=== PATIENT | female | born 1950 | race Caucasian/White ===

== ENCOUNTER 2024-02-09 05:58 | Day surgery (SDC) | payer OTHER, SELFPAY ==
[2024-02-03 08:17] VITALS: BMI 25.0
[2024-02-09] VITALS (12 sets, daily range): BP systolic 83–125; BP diastolic 49–76; PULSE 62–74; RESP 15–20; TEMP 36.1–36.4; O2SAT 96–99; BMI 13.2
--- NOTE | 2024-02-09 | DI.RAD.S_ITS ---
PROCEDURE: XR PELVIS 1-2V INDICATIONS: RIGHT TOTAL HIP TECHNIQUE: Intra-operative view of the pelvis and hip acquired. COMPARISON: None. FINDINGS: Bones: Intraoperative devices prior to placement of arthroplasty prostheses are in expected positions. No fractures or suspicious bony lesions. Soft tissues: Overlying surgical retractors are present, along with other intraoperative changes. IMPRESSION: Expected intraoperative changes for right hip arthroplasty. Dictated by: Apple Mcdonnell MD, PhD on 02/09/2024 at 9:50 Approved by: Apple Mcdonnell MD, PhD on 02/09/2024 at 9:50
--- NOTE | 2024-02-09 06:00 | DI.RAD.S_ITS ---
PROCEDURE: XR HIP W PEL IF DONE RT 2V INDICATIONS: CRISPIN TECHNIQUE: AP pelvis and lateral view of the hip acquired. COMPARISON: [facility], CR, XR PELVIS 1-2V, 02/09/2024, 8:59. FINDINGS: Bones: Patient is status post right hip arthroplasty, with hardware components in expected positions. The hip joint appears congruent. The visualized bony structures appear intact. Soft tissues: Overlying postoperative changes are noted. No suspicious soft tissue densities. IMPRESSION: Expected post-operative appearance of a hip arthroplasty. Dictated by: Vega Waite M.D. on 02/09/2024 at 16:54 Approved by: Vega Waite M.D. on 02/09/2024 at 16:54
[2024-02-09] MEDS: VANCOMYCIN 1,000 MG/200 ML PIGGYBACK 200 MG IV (06:50)
[2024-02-09] MEDS: CELECOXIB 200 MG CAPSULE PO (06:53)
[2024-02-09] MEDS: ACETAMINOPHEN 325 MG TABLET 975 MG PO (06:53)
[2024-02-09] MEDS: LACTATED RINGERS 1,000 ML 42 ML IV (06:53)
--- NOTE | 2024-02-09 07:38 | PM.PREOP ---
Pre-operative Note Interval Note History & Physical reviewed/Exam performed by Physician: Yes Changes to H&P: No
--- NOTE | 2024-02-09 07:39 | PM.OP.1 ---
Operative Date/Time/Diagnoses Date of procedure: 02/09/24 Time of procedure: 07:55 Pre-op diagnosis: Severe right hip OA Post-op diagnosis: same Procedure & Clinicians Procedure: Right total hip arthroplasty anterior approach Same procedure as scheduled: Yes Indications: The patient has had progressively worsening right hip pain with radiographic changes consistent with arthritis. Non-operative management has failed and the patient has requested total hip replacement. The risks, benefits and alternatives to surgery were discussed with the patient prior to proceeding. Risks discussed included, but were not limited to, failure to relieve pain, leg length discrepancy, dislocation, stiffness, infection, nerve damage, deep venous thrombosis, pulmonary embolism, stroke, coma, heart attack, permanent paralysis and , as well as the potential need for eventual revision of the prosthetic. Surgeon: Nahomi Solis Belling Machine Operator: Junior Paniagua Anesthesia Type: General and Sedation Operative Notes Findings: Severe right hip OA, adequate stability, adequate bone Closure Type: primary Specimen(s): none sent Prosthetic devices, grafts, tissues, transplants, or devices: Slois and R3, neutral poly liner,one 6.5 mm screw, polar stem std 2 with collar, 36 by -3 cobalt chrome head Estimated Blood Loss (mL): 250 Blood products transfused: none Procedure in detail: The patient was brought to the operating room. Patient was carefully positioned in the supine position. Time-out was performed and antibiotics were given. Anesthesia was induced. She was positioned in the on the table in order to allow hyperextension of the hip. The right lower extremity was prepped and draped in a standard sterile fashion. An anterior right hip incision was made 1 fingerbreadth lateral to the anterior superior iliac spine and extended distally towards the greater trochanter. Dissection was carried out through skin and subcutaneous tissues. Superficial hemostasis was achieved. The fascia over the tensor fascia radha was defined and incised with a knife. Two Allis clamps were used to grasp the fascia. Tensor fascia radha was retracted laterally. A gelpi retractor was placed. Dissection was carried out down along the neck. The circumflex vessels were carefully identified and cauterized with the Aqua Mantis. A PA was used during the procedure was essential for intraoperative retraction and safe implantation of the components. There was good visualization of the femoral neck. A Cobra was placed superior to the neck and the gluteus fibers were carefully stripped from that superior aspect of the capsule. A 2nd retractor was placed along the inferior aspect of the neck. The rectus insertion along the capsule was partially released. A 3rd retractor that was then gently placed over the rim of the acetabulum under the rectus. Capsule was carefully incised and released from the intertrochanteric line circumferentially superior to the mid sagittal line and inferiorly to the mid sagittal line until the lesser trochanter was palpable. A tag stitch was placed both in the superior and inferior limb of the capsular insertion. Along the acetabulum capsule was also released up to the mid sagittal 12:00 position. A portion of the labrum was resected. A saw was used to perform an osteotomy at the level of the intertrochanteric line and the junction of the superior femoral neck leaving approximately 1 finger breath of residual inferior neck above the lesser trochanter. A 2nd cut was made along the femoral neck at the base of the head and a napkin ring of neck was removed. Corkscrew was placed in the femoral head and the head was removed without difficulty. Retractors were then repositioned around the acetabulum. Residual labrum was resected and additional osteophytes were removed. A reamer that was 4 mm below the templated size was placed by hand in the acetabulum and it was reamed to centralize the acetabulum. It was then reamed up to 2 under the templated size and fluoroscopy was brought in to confirm the position of the reaming and depth of reaming. I reamed 1 under the anticipated size. A trial cup was placed and noted that it was appropriately sized and fluoroscopy confirmed position and depth. The component was open and inserted without difficulty fluoroscopic imaging was used to confirm that the cup had been adequately seated and was well positioned. Neutral poly liner was placed. The cup was tested and noted to be stable. Attention was then directed to the femur. The femur was gently hyperextended additional capsular release was performed as needed in order to allow adequate visualization of the proximal femur with elevation of the femur. Patient was placed in a hyperextended slightly adducted position with maximum external rotation. Box osteotome was used to check for any residual neck as well as sclerotic bone along the trochanter. [place] pepper was placed in the femur. Additional broaching was performed. Canal finder was used to determine the alignment of the canal and position. Size 1 broach was placed. The canal was then appropriately broached up to the templated size as long as there was adequate stability of the broach and serial advancement of the broach without excessive impingement. Specific attention was directed at avoiding varus attempting to direct the distal aspect of the broach more anteriorly and avoiding excessive anteversion. Trial reduction showed acceptable range of motion, good stability, no posterior impingement, adventism of leg length and appropriate lateral shuck. I also hyperflexed the hip and checked that there was no impingement anteriorly and there was good stability with flexion, adduction and internal rotation. Marcaine and Exparel 266 mg were injected. The stem was placed without difficulty. Repeat trial reduction and x-ray showed acceptable overall position, length, and no evidence of the femoral fracture. Final head was placed. Wound was meticulously irrigated with normal saline. The hip was reduced and additional Exparel and Marcaine were injected. The capsule was closed with interrupted nonabsorbable sutures. The fascia of the tensor was closed with interrupted and running Vicryl. No drain was placed. Any tensor fascia radha muscle that appeared to be contused or injured which was a minimal amount was carefully resected. Capsule around the tensor was injected with Exparel and Marcaine. The skin was closed with barbed stitches for the subcutaneous tissue and skin. We also used surgical glue. The wound was dressed sterilely. Brief Betadine soak was also used and was meticulously irrigated with normal saline. Patient was transferred to recovery room in satisfactory condition. Complications: none Post-operative Condition: stable Disposition: Acute Care Plan for aftercare: The patient will be maintained on a standard total hip replacement protocol with weight bearing as tolerated and anterior hip precautions. The patient will receive Xarelto and sequential compression devices for DVT prophylaxis. The patient will be discharged home when safe for the home environment.
[2024-02-09] MEDS: TRANEXAMIC ACID 1,000 MG VIAL 1000 MG INJ ×2 (08:10→09:35)
[2024-02-09] MEDS: CEFAZOLIN 2 GM/100 ML PREMIX 100 ML IV ×2 (08:15→16:21)
--- NOTE | 2024-02-09 08:28 | SUR.OPER ---
Supine on padded [place] table with bilateral legs secured in padded positioning boots and suspended in positioning spars, operative leg in traction per surgeon. Head on one pillow. Arm on non-operative side secured on padded armboard <90 degrees abduction. Arm on operative side padded and resting across chest then secured with tape over sheet. Padded perineal post in place per surgeon.
[2024-02-09] MEDS: BUPIVACAINE LIPOSOME 266 MG/20 ML VIAL INJ (08:34)
[2024-02-09] MEDS: BUPIVACAINE 0.25% (PF) 60 ML, EPINEPHrine 0.3 MG INJ (08:34)
[2024-02-09] MEDS: hydrOXYzine 50 MG/ML INJ 25 MG IM (10:22)
[2024-02-09] MEDS: ONDANSETRON 4 MG/2 ML INJ IV (10:22)
[2024-02-09] MEDS: fentaNYL 100 MCG/2 ML INJ IV ×4 (10:22→10:49)
[2024-02-09] MEDS: ePHEDrine 50 MG/ML VIAL 10 MG IV (10:32)
[2024-02-09] MEDS: METOCLOPRAMIDE 10 MG/2 ML INJ IV (10:39)
[2024-02-09] MEDS: ACETAMINOPHEN 325 MG TABLET 650 MG PO ×2 (11:36→17:21)
[2024-02-09] MEDS: LACTATED RINGERS 1,000 ML 100 ML IV (11:39)
--- NOTE | 2024-02-09 14:50 | PT.IIE ---
Current Diagnoses Unilateral primary osteoarthritis, right hip (02/09/24) Surgery Performed Operation Date: 02/09/24 07:45 Actual Procedures p Total Hip Arthroplasty/Anterior Approach(Right) - Nahomi Solis MD Surgical History (Last Updated 02/03/24 @ 09:32 by Molly Juarez, RN) H/O cataract extraction History of left knee replacement Hx of cholecystectomy S/P lumpectomy, right breast Medical History (Last Updated 02/03/24 @ 09:32 by Molly Juarez, RN) A-fib Anxiety and depression Arthritis HLD (hyperlipidemia) Migraine headache JYOTI (obstructive sleep apnea) TIA (transient ischemic attack) Physical Therapy Inpatient Evaluation/Re-Eval M1 PT/OT-IP Prior Functional Status Start: 02/09/24 15:52 Freq: NEEDED Status: Active Protocol: Document 02/09/24 14:50 AB (Rec: 02/09/24 16:28 AB [id number]) Medical Review Prior Functional Status Medical History Reviewed Yes Communication able to make needs known Mobility and Gait pt stated that she was independent with all mobilities and ambulation without AD Social History Household Members children Living Arrangements House Number of Floors (Floors) Two Floors Number of Stairs To Enter/Railing? pt stays on main level of the house has 2 steps L rail ascending to enter the house Home Environment Standard Height Toilet,Tub/ Shower Home Equipment Front Wheel Walker,Straight Cane,Bedside Commode,Raised Toilet Seat Without Armrests Additional Social History Comment pt lives with her daughter who can assist her has a toilet safety frame M2 PT-IP Current Condition Start: 02/09/24 15:52 Freq: NEEDED Status: Active Protocol: Document 02/09/24 14:50 AB (Rec: 02/09/24 16:28 AB [id number]) Physical Therapy Current Condition Current Condition Evaluation Date 02/09/24 Treatment Diagnosis s/p R CRISPIN anterior; difficulty in walking Onset Date 02/09/24 M3 PT-IP Subjective Start: 02/09/24 15:52 Freq: NEEDED Status: Active Protocol: Document 02/09/24 14:50 AB (Rec: 02/09/24 16:28 AB [id number]) Subjective Physical Therapy Visit Type Type Initial Evaluation Visit Start Time 14:50 Visit Stop Time 15:45 Number of AUTO BODY REPAIRER Visits 0 Physical Therapy Visit Comments Patient Comments agreeable to do PT Therapy Pain Assessment Pain Present Pain Present Denied Pain M4 PT-IP Mobility and Gait Start: 02/09/24 15:52 Freq: NEEDED Status: Active Protocol: Document 02/09/24 14:50 AB (Rec: 02/09/24 16:28 AB [id number]) PT-Bed Mobility Assessment Supine to Sit Supine to Sit Standby Assistance Sit to Supine Sit to Supine Maximum Assistance,1 Person Assistance,Head of Bed Elevated PT-Transfer Assessment Sit to and From Stand Sit to and from Stand Contact Guard Assistance,1 Person Assistance,Use of Upper Extremities Equipment Transfer Assistive Device Gait Belt,Front Wheeled Walker Orthotic/Prosthetic Devices or Brace: No Transfers Transfer Destination Bed,Chair Transfer Technique ambulated Transfer Ability Level of Assist Contact Guard Assistance,1 Person Assistance,Use of Upper Extremities Comments Mobility Comments pt sitting on the chair and agreeable to do PT. pt's daughter in room with pt. obtained PLOF and home set up. Dr. Solis came in and clarified anterior hip precautions to no extreme hip extension and ER. post-op folder provided to pt and reviewed contents. educated pt on anterior hip precautions (no extreme hip extension and ER). pt understood. BP in sittin/ 55. pt completed sit to stand CGA and ambulated to EOB ~ 20 ft using fWW CGA. BP checked : 99/58. pt completed bed mobility sit to supine max A for elevating RLE up the bed. educated pt's daughter on how to assist pt and understood. pt completed supine to sit SBA and cues for techniques. pt sat on EOB SBA. caregiver training: educated daughter on how to use safety belt and how to assist pt. daughter was able to put safety belt on pt. BP checked : 100/57. daughter assisted pt with sit to stand and ambulated pt towards the stairs using fWW ~ 150 ft CGA. stair climbing training: PT demonstrated and educated pt and daughter on stair climbing . pt completed up/down steps holding on to L rail with B hands mod A and cues. daughter was able to assist pt safely. Assisted pt back to the room. informed nurse that pt has to be cleaned up and change. left pt with nurse in room. pt and daughter without further concerns. Gait Assessment Gait Gait Assistance Required: Contact Guard Assist Distance (Feet) 150 Able to Maintain Weight Bearing Status Yes During Gait Assistive Devices Assistive Device Gait Belt,Front Wheeled Walker Orthotic/Prosthetic Devices or Brace: No Gait Deviations General Gait Pattern Antalgic Factors Limiting Gait Function Factors Limiting Gait Function Decreased Activity Tolerance, Decreased Sensation,Decreased Strength,Limited Range of Motion,Pain,Poor Balance,Poor Safety Awareness Stair Climbing Assessment Evaluation Level of Assist On Stairs Moderate Assistance,1 Person Assistance Devices Stair Climbing Assistive Devices Left Railing Technique/Endurance Stair Climbing Direction Ascend and Descend Stair Climbing Technique Step to Step Number of Steps Climbed 3 Query Text: Stair Climbing Set # Repetitions (reps) 1 PT-Balance Assessment Sitting Balance and Reactions Static Sitting Balance Ability Normal Dynamic Sitting Balance Ability Good Standing Balance and Reactions Static Standing Balance Ability Fair Dynamic Standing Balance Ability Fair Device Used FWW M5 PT-IP Objective Assessments Start: 02/09/24 15:52 Freq: NEEDED Status: Active Protocol: Document 02/09/24 14:50 AB (Rec: 02/09/24 16:28 AB [id number]) Orientation Orientation/Cognition Level of Alertness Alert Orientation Name,Place,Situation Language Function Ability No Deficits Noted Safety Awareness Decreased Safety Awareness Memory Description No Deficits Noted Gross Range of Motion Lower Extremity ROM Assessment Within Functional Limits Strength Lower Extremity Strength Assessment Right Impaired Hip 3-/5 Knee 3+/5 Sensation Assessment Sensation Sensation Description Numbness Comments Sensation Comments c/o buttocks numbness Muscle Tone Muscle Tone WNL Yes M6 PT-IP Treatment Start: 02/09/24 15:52 Freq: NEEDED Status: Active Protocol: Document 02/09/24 14:50 AB (Rec: 02/09/24 16:28 AB [id number]) Physical Therapy Treatment Education Education Provided Precautions,Weight Bearing Status,Post-Op Packet,Safety M7 PT-IP Assessment and Plan Start: 02/09/24 15:52 Freq: NEEDED Status: Active Protocol: Document 02/09/24 14:50 AB (Rec: 02/09/24 16:28 AB [id number]) PT Summary Assessment and Plan Potential Rehabilitation Potential Good Status of Condition at Evaluation Evolving Summary Impairments Pain,ROM,Strength,Balance, Coordination,Sensation,Tone, Cognition,Bed Mobility, Transfers,Gait,Activity Tolerance Assessment Summary pt is a 73 y/o F s/p R CRISPIN anterior POD 0. pt with anterior hip precautions(no extreme hip extension and ER) and is WBAT. pt requiring max A for sit to supine and SBA for supine to sit. CGA for transfers and ambulation and mod A for stair climbing using L rail. caregiver training conducted and daughter was able to safely assist pt with mobility. pt has outpt PT set up. Goals Bed Mobility Goal Independent Transfer Goal Independent,Front Wheeled Walker Gait Goal Independent,Front Wheel Walker Gait Distance 200 Other Goals up/down 2 steps L rail ascending mod I Frequency of Treatment Frequency Of Treatment Twice a Day Treatment Plan Physical Therapy Treatment Plan Bed Mobility Training,Transfer Training,Gait Training, Therapeutic Exercise,Balance Retraining,Post Op Education, Discharge Planning,Hot or Cold Pack,Neuromuscular Re-ed, Coordination Retraining,Manual Therapy Precautions Anterior Hip Precautions No Hip Extension,No Hip External Rotation Weight Bearing Status Weight Bearing Status Weight Bear as Tolerated Allowed Weight Bearing Amount (enter % RLE WBAT or #) (%) Recommendations To Nursing Amount of Assist Needed 1 Person Assist Discharge Recommendations PT Discharge Recommendations Home with Assistance, Outpatient PT Transportation Needs at Discharge Private Vehicle
--- NOTE | 2024-02-09 16:05 | OT.IP.EVAL ---
Current Diagnoses Unilateral primary osteoarthritis, right hip (02/09/24) Surgery Performed Operation Date: 02/09/24 07:45 Actual Procedures p Total Hip Arthroplasty/Anterior Approach(Right) - Nahomi Solis MD Past Medical History (Last Updated 02/03/24 @ 09:32 by Molly Juarez, RN) A-fib Anxiety and depression Arthritis HLD (hyperlipidemia) Migraine headache JYOTI (obstructive sleep apnea) TIA (transient ischemic attack) Surgical History (Last Updated 02/03/24 @ 09:32 by Molly Juarez, RN) H/O cataract extraction History of left knee replacement Hx of cholecystectomy S/P lumpectomy, right breast Occupational Therapy Inpatient Evaluation/Re-Eval M1 PT/OT-IP Prior Functional Status Start: 02/09/24 15:52 Freq: NEEDED Status: Active Protocol: Document 02/09/24 15:45 [facility] (Rec: 02/09/24 16:42 [facility] [id number]) Medical Review Prior Functional Status Medical History Reviewed Yes Communication able to make needs known Mobility and Gait pt stated that she was independent with all mobilities and ambulation without AD Activities of Daily Living and IADL's Pt had pain but able to do all ADL and IADL needs. Social History Household Members children Living Arrangements House Number of Floors (Floors) Two Floors Number of Stairs To Enter/Railing? pt stays on main level of the house has 2 steps L rail ascending to enter the house Home Environment Standard Height Toilet,Tub/ Shower Home Equipment Front Wheel Walker,Straight Cane,Bedside Commode,Raised Toilet Seat Without Armrests Additional Social History Comment pt lives with her daughter who can assist her has a toilet safety frame M2 OT-IP Current Condition Start: 02/09/24 16:30 Freq: Status: Active Protocol: Document 02/09/24 15:45 [facility] (Rec: 02/09/24 16:42 [facility] [id number]) Occupational Therapy Current Condition Current Condition Evaluation Date 02/09/24 Treatment Diagnosis S/P R CRISPIN Diagnosis Onset Date 02/09/24 Post Operative Precautions Other Precautions No excessive movement especially into hyperextension for RLE. M3 OT- IP Subjective and Pain Start: 02/09/24 16:30 Freq: Status: Active Protocol: Document 02/09/24 15:45 [facility] (Rec: 02/09/24 16:42 [facility] [id number]) OT- Subjective Occupational Therapy Visit Type Type Initial Evaluation Visit Start Time 13:45 Visit Stop Time 14:05 Occupational Therapy Visit Comments Patient Comments Pt in the bathroom when OT came to work with the pt. Patient/Caregiver Goals TO go home. OT Pain Assessment Pain When Pain Assessed At Rest Pain Present Pain Present Denied Pain M4 OT- IP ADL's Start: 02/09/24 16:30 Freq: Status: Active Protocol: Document 02/09/24 15:45 [facility] (Rec: 02/09/24 16:42 [facility] [id number]) OT ADL-Dressing General Eval Upper Body Dressing Ability Independent Lower Body Dressing Ability Moderate Assistance Areas Needing Assistance Socks,Shoes Comments OT Dressing Comments Went over use of LB dressing equipment and not to cross her legs over for extreme movements. OT ADL-Toileting General Evaluation Toileting Ability Standby Assistance OT ADL-Bathing Comments OT Bathing Comments Pt will benefit from a shower chair. M5 OT- IP IADL's Start: 02/09/24 16:30 Freq: Status: Active Protocol: Document 02/09/24 15:45 [facility] (Rec: 02/09/24 16:42 [facility] [id number]) OT-Instrumental Activities of Daily Living Home Safety Awareness Awareness of Need for Assistance at Home Decreased Awareness Ability to Problem Solve Emergency Able to Problem Solve Situations Meal Preparation Meal Preparation Caregiver Provides Assist It Program Manager It Program Manager Caregiver Provides Assist M6 OT- IP Functional Cognition Start: 02/09/24 16:30 Freq: Status: Active Protocol: Document 02/09/24 15:45 [facility] (Rec: 02/09/24 16:42 [facility] [id number]) Cognitive Factors Limiting Selfcare Function Cognitive Ability Level of Alertness Alert Patient Orientation Name,Age,Birthday,Month,Date, Year,Day of Week,Place, Situation Attention Span Ability Capable of Focused Attention, Capable of Sustained Attention Ability to Follow Commands Able to Follow Multi-Step Commands Cognitive Comments Cognitive Assessment Comments Pt intact. OT- Vision and Hearing OT- Hearing Assessment OT- Hearing Assessment WFL,Use of Hearing Aids OT- Vision Assessment Visual Acuity Glasses All The Time M7 OT- IP Mobility and Balance Start: 02/09/24 16:30 Freq: Status: Active Protocol: Document 02/09/24 15:45 [facility] (Rec: 02/09/24 16:42 [facility] [id number]) OT-Transfer Assessment Sit to and From Stand Sit to and from Stand Standby Assistance Transfers Transfer Ability Standby Assistance Technique Transfer Destination Chair,Toilet Devices Transfer Assistive Devices Gait Belt,Front Wheeled Walker Comments Mobility Comments SBA with FWW. OT- Balance Assessment Sitting Balance and Reactions Static Sitting Balance Ability Normal Dynamic Sitting Balance Ability Good Standing Balance and Reactions Static Standing Balance Ability Good Dynamic Standing Balance Ability Good M8 OT- IP Objective Assessments Start: 02/09/24 16:30 Freq: Status: Active Protocol: Document 02/09/24 15:45 [facility] (Rec: 02/09/24 16:42 [facility] [id number]) OT Gross Range of Motion Upper Extremity Range of Motion Assessment Within Functional Limits M9 OT- IP Assessment and Plan Start: 02/09/24 16:30 Freq: Status: Active Protocol: Document 02/09/24 15:45 [facility] (Rec: 02/09/24 16:42 [facility] [id number]) OT Summary Assessment and Plan Potential Rehabilitation Potential Excellent Analytic Complexity at Evaluation Low Summary OT Impairments Balance,Functional Mobility, Dressing,Bathing Progress Towards Goals Progressing Toward Goals Assessment Summary Pt low complexity and main barriers are pt will need assist for dressing and bathing needs and benefit from a shower chair. Pt to go home with her daughter to assist and have outpt PT. Goals Dressing Goal Independent,Bareback Rider,Sock Aid Toileting Goal Independent Bathing Goal Standby Assistance Toilet Transfer Goal Independent Shower Transfer Goal Standby Assistance Days to Meet Goals 3 Frequency of Treatment Frequency Of Treatment Once a Day Treatment Plan OT Treatment Plan ADL Training,Functional Mobility,Patient/Family Education,Discharge Planning Discharge Recommendations OT Discharge Recommendations Home with Assistance, Outpatient PT Home Equipment Needs shower chair, sock aid Transportation Needs at Discharge Private Vehicle
--- NOTE | 2024-02-09 16:05 | OT.IP.EVAL ---
Current Diagnoses Unilateral primary osteoarthritis, right hip (02/09/24) Surgery Performed Operation Date: 02/09/24 07:45 Actual Procedures p Total Hip Arthroplasty/Anterior Approach(Right) - Nahomi Solis MD Past Medical History (Last Updated 02/03/24 @ 09:32 by Molly Juarez, RN) A-fib Anxiety and depression Arthritis HLD (hyperlipidemia) Migraine headache JYOTI (obstructive sleep apnea) TIA (transient ischemic attack) Surgical History (Last Updated 02/03/24 @ 09:32 by Molly Juarez, RN) H/O cataract extraction History of left knee replacement Hx of cholecystectomy S/P lumpectomy, right breast Occupational Therapy Inpatient Evaluation/Re-Eval M1 PT/OT-IP Prior Functional Status Start: 02/09/24 15:52 Freq: NEEDED Status: Active Protocol: Document 02/09/24 15:45 [facility] (Rec: 02/09/24 16:42 [facility] [id number]) Medical Review Prior Functional Status Medical History Reviewed Yes Communication able to make needs known Mobility and Gait pt stated that she was independent with all mobilities and ambulation without AD Activities of Daily Living and IADL's Pt had pain but able to do all ADL and IADL needs. Social History Household Members children Living Arrangements House Number of Floors (Floors) Two Floors Number of Stairs To Enter/Railing? pt stays on main level of the house has 2 steps L rail ascending to enter the house Home Environment Standard Height Toilet,Tub/ Shower Home Equipment Front Wheel Walker,Straight Cane,Bedside Commode,Raised Toilet Seat Without Armrests Additional Social History Comment pt lives with her daughter who can assist her has a toilet safety frame M2 OT-IP Current Condition Start: 02/09/24 16:30 Freq: Status: Active Protocol: Document 02/09/24 15:45 [facility] (Rec: 02/09/24 16:42 [facility] [id number]) Occupational Therapy Current Condition Current Condition Evaluation Date 02/09/24 Treatment Diagnosis S/P R CRISPIN Diagnosis Onset Date 02/09/24 Post Operative Precautions Other Precautions No excessive movement especially into hyperextension for RLE. M3 OT- IP Subjective and Pain Start: 02/09/24 16:30 Freq: Status: Active Protocol: Document 02/09/24 15:45 [facility] (Rec: 02/09/24 16:42 [facility] [id number]) OT- Subjective Occupational Therapy Visit Type Type Initial Evaluation Visit Start Time 15:45 Visit Stop Time 16:05 Occupational Therapy Visit Comments Patient Comments Pt in the bathroom when OT came to work with the pt. Patient/Caregiver Goals TO go home. OT Pain Assessment Pain When Pain Assessed At Rest Pain Present Pain Present Denied Pain M4 OT- IP ADL's Start: 02/09/24 16:30 Freq: Status: Active Protocol: Document 02/09/24 15:45 [facility] (Rec: 02/09/24 16:42 [facility] [id number]) OT ADL-Dressing General Eval Upper Body Dressing Ability Independent Lower Body Dressing Ability Moderate Assistance Areas Needing Assistance Socks,Shoes Comments OT Dressing Comments Went over use of LB dressing equipment and not to cross her legs over for extreme movements. OT ADL-Toileting General Evaluation Toileting Ability Standby Assistance OT ADL-Bathing Comments OT Bathing Comments Pt will benefit from a shower chair. M5 OT- IP IADL's Start: 02/09/24 16:30 Freq: Status: Active Protocol: Document 02/09/24 15:45 [facility] (Rec: 02/09/24 16:42 [facility] [id number]) OT-Instrumental Activities of Daily Living Home Safety Awareness Awareness of Need for Assistance at Home Decreased Awareness Ability to Problem Solve Emergency Able to Problem Solve Situations Meal Preparation Meal Preparation Caregiver Provides Assist Pipe Coverer Helper Pipe Coverer Helper Caregiver Provides Assist M6 OT- IP Functional Cognition Start: 02/09/24 16:30 Freq: Status: Active Protocol: Document 02/09/24 15:45 [facility] (Rec: 02/09/24 16:42 [facility] [id number]) Cognitive Factors Limiting Selfcare Function Cognitive Ability Level of Alertness Alert Patient Orientation Name,Age,Birthday,Month,Date, Year,Day of Week,Place, Situation Attention Span Ability Capable of Focused Attention, Capable of Sustained Attention Ability to Follow Commands Able to Follow Multi-Step Commands Cognitive Comments Cognitive Assessment Comments Pt intact. OT- Vision and Hearing OT- Hearing Assessment OT- Hearing Assessment WFL,Use of Hearing Aids OT- Vision Assessment Visual Acuity Glasses All The Time M7 OT- IP Mobility and Balance Start: 02/09/24 16:30 Freq: Status: Active Protocol: Document 02/09/24 15:45 [facility] (Rec: 02/09/24 16:42 [facility] [id number]) OT-Transfer Assessment Sit to and From Stand Sit to and from Stand Standby Assistance Transfers Transfer Ability Standby Assistance Technique Transfer Destination Chair,Toilet Devices Transfer Assistive Devices Gait Belt,Front Wheeled Walker Comments Mobility Comments SBA with FWW. OT- Balance Assessment Sitting Balance and Reactions Static Sitting Balance Ability Normal Dynamic Sitting Balance Ability Good Standing Balance and Reactions Static Standing Balance Ability Good Dynamic Standing Balance Ability Good M8 OT- IP Objective Assessments Start: 02/09/24 16:30 Freq: Status: Active Protocol: Document 02/09/24 15:45 [facility] (Rec: 02/09/24 16:42 [facility] [id number]) OT Gross Range of Motion Upper Extremity Range of Motion Assessment Within Functional Limits M9 OT- IP Assessment and Plan Start: 02/09/24 16:30 Freq: Status: Active Protocol: Document 02/09/24 15:45 [facility] (Rec: 02/09/24 16:42 [facility] [id number]) OT Summary Assessment and Plan Potential Rehabilitation Potential Excellent Analytic Complexity at Evaluation Low Summary OT Impairments Balance,Functional Mobility, Dressing,Bathing Progress Towards Goals Progressing Toward Goals Assessment Summary Pt low complexity and main barriers are pt will need assist for dressing and bathing needs and benefit from a shower chair. Pt to go home with her daughter to assist and have outpt PT. Goals Dressing Goal Independent,Anesthesiology Technologist,Sock Aid Toileting Goal Independent Bathing Goal Standby Assistance Toilet Transfer Goal Independent Shower Transfer Goal Standby Assistance Days to Meet Goals 3 Frequency of Treatment Frequency Of Treatment Once a Day Treatment Plan OT Treatment Plan ADL Training,Functional Mobility,Patient/Family Education,Discharge Planning Discharge Recommendations OT Discharge Recommendations Home with Assistance, Outpatient PT Home Equipment Needs shower chair, sock aid Transportation Needs at Discharge Private Vehicle
== END 2024-02-09 17:48 | disposition home or self-care (01) ==
LOC: OR 05:59 → AC 06:03
PROVIDERS: PCP Family Medicine; Referring Provider Orthopaedic Surgery; Visit Provider Orthopaedic Surgery
PROC: (CPT 27130; principal; 2024-02-09 07:45)
DX: M16.11 Unilateral primary osteoarthritis, right hip (principal); M25.751 Osteophyte, right hip
CPT/HCPCS: 27130; 72170; 73502; 76000; 97162; 97165; 97530; 97535; C1776; C9290; J0171; J0690; J1100; J2250; J2405; J2704; J2765; J3010; J3410

== ENCOUNTER → 2024-10-27 12:42 | Outpatient (CLI) | payer OTHER, SELFPAY ==
[2024-02-09 06:25] VITALS: BMI 13.2
--- NOTE | 2024-10-27 12:44 | EKG_ITS ---
[place] [id number] [address] [place] [id number] Test Date: 2024-10-27 Pat Name: Ruma Cooper Department: [facility] Room: Gender: Female Kiln Tester: ANJELICA : 1950 Requested By: Order Number: [id number] Reading MD: Alec Jones Measurements Intervals [place] Rate: 70 P: 13 DE: 186 QRS: -21 QRSD: 76 T: 34 QT: 392 QTc: 423 Interpretive Statements Normal sinus rhythm Low voltage QRS Septal infarct , age undetermined Electronically Signed On 11-11-2024 8:07:29 PDT by Alec Jones
[2024-10-27 13:28] LABS: Appearance Urine UA CLEAR; Bilirubin Urine UA NEGATIVE (NEGATIVE); Color Urine UA YELLOW; Glucose Urine UA NEGATIVE (Negative); Ketones Urine UA NEGATIVE (NEGATIVE); Leukocyte Esterase Urine UA NEGATIVE (NEGATIVE); Nitrite Urine UA NEGATIVE (Negative); Occult Blood Urine UA NEGATIVE (Negative); Protein Urine UA NEGATIVE (Negative); Specific Gravity Urine UA 1.010 (1.000-1.035); Urobilinogen Urine UA 0.2 E.U./dL (0.2)
[2024-10-27 13:32] LABS: pH Urine UA 7.0 (4.5-8.0)
[2024-10-27 13:37] LABS: Culture Indicated Urine Cult Not Indicated
[2024-10-27 13:38] LABS: Add Manual Diff / Slide Review NO; Hematocrit 39.3 % (36-46); Hemoglobin 13.6 g/dL (12.0-16.0); Lymphocytes Absolute Auto 1500 /uL (1100-4500); Mean Corpuscular HGB Conc 34.5 % (30-36); Mean Corpuscular Hemoglobin 32.6 PG (26-34); Mean Corpuscular Volume 94.3 fL (80-100); Platelet Count 267 X10^3/uL (150-400)
[2024-10-27 13:43] LABS: Hemoglobin A1C% w Est Avg Glu 5.3 % (4.0-6.0)
[2024-10-27 13:49] LABS: Blood Urea Nitrogen 17 mg/dL (7-17); Calcium 9.2 mg/dL (8.4-10.2); Carbon Dioxide 29 mmol/L (22-32); Chloride 102 mmol/L (98-107); Estimated Glomerular Filt Rate > 60 mL/min (>60); Glucose 97 mg/dL (70-99); HEMOLYSIS < 15 (0-50); Potassium 4.9 mmol/L (3.4-5.1); Sodium 136 mmol/L (137-145)
== END ==
LOC: RESP 12:43
PROVIDERS: PCP Family Medicine; Referring Provider Orthopaedic Surgery; Visit Provider Orthopaedic Surgery
DX: Z01.818 Encounter for other preprocedural examination (principal); R73.9 Hyperglycemia, unspecified; N39.0 Urinary tract infection, site not specified; Z01.812 Encounter for preprocedural laboratory examination
CPT/HCPCS: 36415; 80048; 81001; 83036; 85025; 93005